=== PATIENT | female | born 1930 | race Caucasian/White ===

== ENCOUNTER 2017-10-30 13:30 | Emergency (ER) | payer OTHER ==
[~2017-10-30] VITALS: Ht 160 cm; Wt 62.6 kg
[2017-10-30] MEDS ORDERED: ASPIRIN EC81 M1 PO (13:46)
[2017-10-30 14:27] LABS: ABSOLUTE LYMPHOCYTES 1.4 thou/uL (0.8-5.3); ABSOLUTE MONOCYTES 0.6 thou/uL (0.0-1.2); ABSOLUTE NEUTROPHILS 6.4 thou/uL (1.6-8.1); BASOPHILS 0.5 %; EOSINOPHILS 0.5 %; HEMATOCRIT 40.6 % (37.0-47.0); HEMOGLOBIN 13.6 gm/dL (12.0-15.0); LYMPHOCYTES 16.5 %; MCH 31.4 pg (26.0-34.0); MCHC 33.6 g/dL (28.0-37.0); MCV 93.3 fL (80.0-100.0); MONOCYTES 6.8 %; MPV 7.2 fl. (7.2-11.1); NUCLEATED RBCS 0 /100WBC; PLATELET COUNT* 228 thou/uL (150-400); POLYS 75.7 %; RBC 4.35 mil/uL (4.20-5.00); RDW-CV 13.5 % (10.5-14.5); WBC 8.4 thou/uL (4.0-11.0)
[2017-10-30 14:36] LABS: ANION GAP 5 mmol/L (7-16); BUN 12 mg/dL (7-18); CALCIUM 8.9 mg/dL (8.5-10.1); CHLORIDE 103 mmol/L (98-107); CO2 29 mmol/L (21-32); CREATININE 0.8 mg/dL (0.6-1.3); GLUCOSE 155 mg/dL (70-99); POTASSIUM 3.7 mmol/L (3.5-5.1); SODIUM 137 mmol/L (136-145)
[2017-10-30 14:46] LABS: ALBUMIN 3.6 g/dL (3.4-5.0); ALKALINE PHOSPHATASE 76 U/L (46-116); NT-PRO BRAIN NAT PEPTIDE 325 pg/mL (<300); SGOT 18 U/L (15-37); SGPT 20 U/L (30-65); TOTAL BILIRUBIN 0.4 mg/dL (<0.1-1.0); TROPONIN-I LEVEL <0.06 ng/mL (<0.06)
[2017-10-30 15:26] VITALS: BP 128/55
--- NOTE | 2017-10-31 13:27 | EKG ---
[place] [address] ELECTROCARDIOGRAM REPORT Name: YEN CEDENO Room: [facility]#: [id number] Admission: 10/30/17 Attend Phys: Discharge: 10/30/17 Date of : [birth year] Report #: [id number] THIS REPORT FOR: //name// [facility] ED Test Date: 2017-10-30 Test Time: 13:59:29 Pat Name: YEN CEDENO Department: Room: Gender: F Specialties Operator: : 1930 Requested By: Nevin Fu Order Number: [id number] MD: Yovany Light Measurements Intervals [place] Rate: 80 P: 34 [place]: 223 QRS: -7 QRSD: 117 T: 171 QT: 397 QTc: 458 Interpretive Statements Sinus rhythm Multiple ventricular premature complexes Prolonged [place] interval LBBB No previous ECG available for comparison Electronically Signed On 10-31-2017 13:27:18 CDT by Yovany Light [email or web address] <ELECTRONICALLY SIGNED> By: Yovany Light MD, [facility] 10/31/17 1327 1359 1359 Yovany Light MD, FACC /EPI
--- NOTE | 2017-10-31 13:28 | EKG ---
[place] [address] ELECTROCARDIOGRAM REPORT Name: YEN CEDENO Room: [facility]#: [id number] Admission: 10/30/17 Attend Phys: Discharge: 10/30/17 Date of : [birth year] Report #: [id number] THIS REPORT FOR: //name// [facility] ED Test Date: 2017-10-30 Test Time: 15:16:43 Pat Name: YEN CEDENO Department: Room: Gender: F Hris Developer: Mariella SANTANA : 1930 Requested By: Nevin Fu Order Number: [id number] MD: Yovany Light Measurements Intervals [place] Rate: 79 P: 12 [place]: 229 QRS: -14 QRSD: 117 T: 139 QT: 365 QTc: 419 Interpretive Statements Sinus rhythm Multiple ventricular premature complexes Prolonged [place] interval LBBB Electronically Signed On 10-31-2017 13:27:50 CDT by Yovany Light [email or web address] <ELECTRONICALLY SIGNED> By: Yovany Light MD, [facility] 10/31/17 1327 1516 1516 Yovany Light MD, FACC /EPI
== END 2017-10-30 15:29 | disposition home or self-care (01) ==
LOC: M.ERS 13:30
PROVIDERS: Personal Emergency Response Attendant
DX: R42 Dizziness and giddiness (principal); R53.1 Weakness; Z88.0 Allergy status to penicillin